=== PATIENT | male | born 1935 | race Caucasian/White ===

== ENCOUNTER → 2023-02-06 14:11 | Outpatient (CLI) | payer MEDICARE, OTHER, SELFPAY ==
[2023-02-06 15:16] LABS: Add Manual Diff / Slide Review NO; Basophils Absolute Auto 0 /uL (0-100); Basophils Percent Auto 0.7 % (0-2); Eosinophils Absolute Auto 100 /uL (0-450); Eosinophils Percent Auto 2.6 % (2-4); Hematocrit 39.6 % (41-53); Hemoglobin 13.2 g/dL (13.5-17.5); Lymphocytes Absolute Auto 1500 /uL (1100-4500); Lymphocytes Percent Auto 26.4 % (25-40); Mean Corpuscular HGB Conc 33.4 % (30-36); Mean Corpuscular Hemoglobin 32.5 PG (26-34); Mean Corpuscular Volume 97.2 fL (80-100); Monocytes Absolute Auto 500 /uL (0-900); Monocytes Percent Auto 8.8 % (3-14); Neutrophils Absolute Auto 3400 /uL (1500-7000); Neutrophils Percent Auto 61.5 % (50-75); Platelet Count 168 X10^3/uL (150-400); Red Blood Cell Count 4.07 X10^6/uL (4.5-5.9); Red Cell Distribution Width 14.6 % (11.6-14.8); White Blood Cell Count 5.6 X10^3/uL (4.5-11.0)
[2023-02-06 15:43] LABS: Alanine Aminotransferase 14 IU/L (<50); Albumin 4.3 g/dL (3.5-5.0); Albumin Globulin Ratio 1.2 (1.0-2.8); Alkaline Phosphatase 75 U/L (38-126); Aspartate Aminotransferase 20 IU/L (17-59); BUN Creatinine Ratio 15.4 (6-22); Bilirubin Total 0.4 mg/dL (0.2-1.3); Blood Urea Nitrogen 18 mg/dL (9-20); Calcium 9.7 mg/dL (8.4-10.2); Carbon Dioxide 26 mmol/L (22-32); Chloride 104 mmol/L (98-107); Estimated Glomerular Filt Rate 60 mL/min (>60); Globulin 3.7 g/dL (1.7-4.1); Glucose 113 mg/dL (80-110); HEMOLYSIS < 15 (0-50); Potassium 4.1 mmol/L (3.4-5.1); Sodium 139 mmol/L (137-145)
== END ==
PROVIDERS: PCP Internal Medicine; Referring Provider Internal Medicine Cardiovascular Disease; Visit Provider Internal Medicine Cardiovascular Disease
DX: I25.118 Atherosclerotic heart disease of native coronary artery with other forms of angina pectoris (principal)
CPT/HCPCS: 36415; 80053; 85025

== ENCOUNTER → 2023-02-09 13:35 | Outpatient (CLI) | payer MEDICARE, OTHER, SELFPAY ==
--- NOTE | 2023-02-09 | DI.CT.S_ITS ---
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 3-dimensional btjxuyj-swyohmdit-lbgrdsrtfh (MIP) and/or volume rendering reformats were acquired of the central intracranial vasculature and neck separately. For radiation dose reduction, the following was used: automated exposure control, adjustment of mA and/or kV according to patient size. COMPARISON: None. FINDINGS: Image quality: Diagnostic. BRAIN: CSF spaces: Ventricles are normal in size and shape. Basal cisterns are patent. No extra-axial fluid collections. Brain: No significant abnormality of the brain can be seen. Skull and face: Calvarium and facial bones appear intact, without suspicious lesions. Orbits appear normal. Sinuses: Sinuses and mastoids are clear. HEAD CT ANGIOGRAPHY: Anterior circulation: Intracranial internal carotid arteries demonstrate atherosclerotic irregularity and calcification, with approximately 30% narrowing on each side. The flow within the paired anterior cerebral arteries is normal and symmetric. The flow within the middle cerebral arteries is normal and symmetric. The anterior communicating artery is seen. No aneurysms are seen. Posterior circulation: Focal atherosclerotic calcification can be seen involving the V4 segments, with approximately 50% narrowing on each side. The distal left V4 segment largely terminates in the left posterior inferior cerebellar artery. There is a normal appearing basilar artery. Flow within the posterior cerebral arteries is normal and symmetric. No aneurysms are seen. NECK CT ANGIOGRAPHY: Carotid system: The great vessels demonstrate a conventional anatomy as they arise from the aortic arch. The origins of the common carotid arteries appear patent. The common carotid arteries demonstrate normal caliber and courses. The bifurcation regions demonstrate dense atherosclerotic irregularity and calcification. There is approximately 90% narrowing seen on the right and 80-90% narrowing on the left. The more distal internal carotid arteries demonstrate normal course and caliber. Posterior circulation: The origins of the vertebral arteries both appear widely patent. The more superior extracranial portions of both vertebral arteries also demonstrate normal courses and calibers. They join to form a normal appearing basilar artery. Soft tissues: Visualized neck soft tissues demonstrate no suspicious abnormalities. Bones: No suspicious bony lesions. Visualized cervical spine appears normally aligned. Age-appropriate bony degenerative changes are seen. IMPRESSION: Dense calcification can be seen involving the carotid bifurcation regions, with approximately 90% narrowing involving the right internal carotid artery origin and 80-90% narrowing involving the left internal carotid artery origin. Focal calcification can be seen involving the V4 segments, with approximately 50% narrowing on each side. Any quantitative measurements of stenosis were performed using NASCET criteria. Dictated by: Kuldeep Doherty M.D. on 02/09/2023 at 13:35 Approved by: Kuldeep Doherty M.D. on 02/09/2023 at 13:43
== END ==
PROVIDERS: PCP Internal Medicine; Referring Provider Internal Medicine Cardiovascular Disease; Visit Provider Internal Medicine Cardiovascular Disease
DX: I65.23 Occlusion and stenosis of bilateral carotid arteries (principal); I25.118 Atherosclerotic heart disease of native coronary artery with other forms of angina pectoris
CPT/HCPCS: 70496; 70498; Q9967